=== PATIENT | male | born 1975 | race Caucasian/White ===

== ENCOUNTER 2020-03-06 10:25 | Emergency (ER) | payer OTHER ==
[~2020-03-06] VITALS: Ht 170.2 cm; Wt 90.3 kg
[2020-03-06] MEDS ORDERED: AMOX875T2 (10:48)
[2020-03-06] MEDS ORDERED: LIPI20TA PO (10:48)
[2020-03-06] MEDS ORDERED: CENT1TAB2 PO (10:48)
[2020-03-06] MEDS ORDERED: ACIP1TAB PO (10:48)
[2020-03-06] MEDS ORDERED: FISH1000 PO (10:48)
[2020-03-06] MEDS ORDERED: BOOSTRIX/ADACEL VACCINE (DIPHTH/PERTUSS/ACELL/TETANUS) 0.5ML SYR IM ONE (11:15)
--- NOTE | 2020-03-06 11:33 | REP ---
INDICATION: Left distal index finger pain/swelling/erythema. COMPARISON: None. TECHNIQUE: Four views FINDINGS: There is soft tissue swelling along the radial aspect and dorsally in the region about the DIP joint of the 2nd digit. No underlying bony abnormality or foreign body. No erosions or abnormal soft tissue calcifications. The IP joints, MCP joints, phalanges and metacarpals visible were all unremarkable. IMPRESSION: 1. Soft tissue swelling dorsally and along radial aspect at the DIP joint level of the 2nd digit without underlying bony abnormality, foreign body or destructive lesion. No abnormal calcification or avulsion seen. <Electronically signed by Sotero Esparza > 03/06/20 1128
[2020-03-06 11:51] LABS: BASO # 0.1 10^3/uL (0.0-0.2); BASO % 0.6 % (0.0-1.0); EOS # 0.1 10^3/uL (0.0-0.5); EOS % 0.9 % (0.0-3.0); HEMATOCRIT 47.5 % (42.0-52.0); HEMOGLOBIN 15.9 g/dl (13.5-17.5); LYMPH % 36.4 % (24.0-44.0); MEAN CORPUSCULAR HEMOGLOBIN 31.9 pg (27.0-33.0); MEAN CORPUSCULAR HGB CONC 33.5 g/dl (32.0-36.5); MEAN CORPUSCULAR VOLUME 95.2 fl (80.0-96.0); MONO # 0.5 10^3/uL (0.0-0.8); NEUTROPHILS # 4.6 10^3/uL (1.5-8.5); NEUTROPHILS % 55.9 % (36.0-66.0); PLATELET COUNT, AUTOMATED 322 10^3/uL (150-450); RED BLOOD COUNT 4.99 10^6/uL (4.30-6.10); WHITE BLOOD COUNT 8.2 10^3/uL (4.0-10.0)
[2020-03-06] MEDS ORDERED: CLINDAMYCIN 600 MG in IV 1 EA IV ONE (12:00)
[2020-03-06] MEDS ORDERED: BACT800T5 PO (13:32)
[2020-03-06 13:54] VITALS: BP 126/79
== END 2020-03-06 13:56 | disposition home or self-care (01) ==
LOC: M ED 10:25
DX: M79.645 Pain in left finger(s) (principal); E78.5 Hyperlipidemia, unspecified; K21.9 Gastro-esophageal reflux disease without esophagitis; Z79.899 Other long term (current) drug therapy; F17.210 Nicotine dependence, cigarettes, uncomplicated

== ENCOUNTER → 2021-11-11 | Outpatient (CLI) | payer OTHER ==
[~2021-11-11] MED LIST: ACIP1TAB PO; AMOX875T2; BACT800T5 PO; CENT1TAB2 PO; FISH1000 PO; LIPI20TA PO
== END ==
LOC: M RAD 16:57
PROVIDERS: ATTEND Internal Medicine
DX: M25.511 Pain in right shoulder (principal)

== ENCOUNTER → 2022-06-17 | Outpatient (CLI) | payer OTHER | LOC: M RAD 08:32 | PROVIDERS: ATTEND Internal Medicine | DX: M50.30 Other cervical disc degeneration, unspecified cervical region (principal); M48.02 Spinal stenosis, cervical region; M99.61 Osseous and subluxation stenosis of intervertebral foramina of cervical region; M51.24 Other intervertebral disc displacement, thoracic region ==

== ENCOUNTER 2022-10-31 07:26 | Day surgery (SDC) | payer OTHER ==
[~2022-10-31] VITALS: Ht 175.3 cm; Wt 89.4 kg
[~2022-10-31 07:26] MED LIST changes: +NS 1,000 ML IV ONE; +OMEG10002 PO; +ZETI10TA16 PO
[2022-10-31] MEDS ORDERED: propofoL 200 MG/20 ML VIAL As Ordered ONE ×2 (08:15→09:05)
[2022-10-31] MEDS ORDERED: fentaNYL 100 MCG/2 ML INJECTION As Ordered ONE (08:51)
[2022-10-31 09:26] VITALS: TEMP 96.9
[2022-10-31 09:51] VITALS: BP 148/77; O2SAT 96
== END 2022-10-31 10:13 | disposition home or self-care (01) ==
LOC: M OPP 07:26
PROVIDERS: ATTEND Internal Medicine Gastroenterology
DX: Z12.11 Encounter for screening for malignant neoplasm of colon (principal); D12.6 Benign neoplasm of colon, unspecified; K64.0 First degree hemorrhoids; K31.89 Other diseases of stomach and duodenum; Z79.899 Other long term (current) drug therapy; F17.200 Nicotine dependence, unspecified, uncomplicated
CPT/HCPCS: 43239; 45385; 88305; J3010

== ENCOUNTER → 2024-04-22 | Outpatient (CLI) | payer OTHER ==
[~2024-04-22] MED LIST changes: -ACIP1TAB PO; +EZET10TA58 PO; -NS 1,000 ML IV ONE; +RABE20TA88 PO; -ZETI10TA16 PO
== END ==
LOC: M SLEEP 20:00
PROVIDERS: ATTEND Internal Medicine
DX: R06.83 Snoring (principal); R25.1 Tremor, unspecified

== ENCOUNTER → 2024-06-21 | Outpatient (CLI) | payer OTHER | LOC: M RAD 15:12 | PROVIDERS: ATTEND Internal Medicine | DX: N50.811 Right testicular pain (principal); R10.31 Right lower quadrant pain; K40.20 Bilateral inguinal hernia, without obstruction or gangrene, not specified as recurrent ==

== ENCOUNTER → 2024-08-05 | Outpatient (CLI) | payer OTHER | LOC: M RAD 13:06 | PROVIDERS: ATTEND Internal Medicine | DX: J32.9 Chronic sinusitis, unspecified (principal); J34.2 Deviated nasal septum ==

== ENCOUNTER → 2024-12-26 | Outpatient (CLI) | payer OTHER ==
[~2024-12-26] MED LIST changes: +JARD1TAB3 PO; +METF500T13 PO; +TERB250T90 PO
== END ==
LOC: M SOG 10:49
PROVIDERS: ATTEND Neuromusculoskeletal Medicine, Sports Medicine
DX: M25.561 Pain in right knee (principal)